=== PATIENT | male | born 1945 | race Caucasian/White ===

== ENCOUNTER 2016-10-02 14:13 | Emergency (ER) | payer OTHER ==
[2016-10-02 22:21] LABS: HEMOGLOBIN 14.7 gm/dl (14.0-17.5); RED BLOOD COUNT 5.08 M/UL (4.20-5.50)
[2016-10-02 22:39] LABS: BUN/CREATININE RATIO 17 (0-10)
== END 2016-10-03 02:56 | disposition home or self-care (01) ==
LOC: ER1 14:13
PROVIDERS: Family Medicine
DX: K80.70 Calculus of gallbladder and bile duct without cholecystitis without obstruction (principal); E11.9 Type 2 diabetes mellitus without complications; I10 Essential (primary) hypertension
CPT/HCPCS: 36415; 80053; 81001; 82150; 83690; 85025; 96361; 96374; 96375; 99284; J1885; J2405; J7050; Q9962

== ENCOUNTER → 2016-10-05 | Outpatient (CLI) | payer OTHER | LOC: KOH-I 12:19 | DX: R05 Cough (principal); J43.9 Emphysema, unspecified | CPT/HCPCS: 71020 ==

== ENCOUNTER → 2021-02-13 | Outpatient (CLI) | payer OTHER | LOC: KOH-I 10:06 | DX: R91.1 Solitary pulmonary nodule (principal) | CPT/HCPCS: 71250 ==

== ENCOUNTER 2021-08-14 11:21 | Emergency (ER) | payer OTHER ==
[2021-08-14 11:47] LABS: HEMOGLOBIN 13.4 gm/dl (14.0-17.5); RED BLOOD COUNT 4.69 M/UL (4.20-5.50); WHITE BLOOD COUNT 6.4 K/UL (4.5-11.0)
[2021-08-14 12:30] LABS: BUN/CREATININE RATIO 10 (0-10)
== END 2021-08-14 14:30 | disposition home or self-care (01) ==
LOC: ER1 11:21
PROVIDERS: Emergency Medicine
DX: U07.1 COVID-19 (principal); I11.9 Hypertensive heart disease without heart failure; J44.9 Chronic obstructive pulmonary disease, unspecified; Z95.5 Presence of coronary angioplasty implant and graft
CPT/HCPCS: 36600; 71045; 80053; 82550; 82553; 82803; 84484; 85025; 99285

== ENCOUNTER → 2021-09-10 | Outpatient (CLI) | payer OTHER | LOC: EXRD 08:42 | DX: R74.8 Abnormal levels of other serum enzymes (principal); I49.3 Ventricular premature depolarization; K76.0 Fatty (change of) liver, not elsewhere classified | CPT/HCPCS: 76705 ==

== ENCOUNTER → 2021-12-18 | Outpatient (CLI) | payer OTHER | LOC: HEART 5 10:30 | DX: R06.02 Shortness of breath (principal); I49.3 Ventricular premature depolarization; I08.1 Rheumatic disorders of both mitral and tricuspid valves | CPT/HCPCS: 93306 ==